=== PATIENT | male | born 1975 | race Caucasian/White ===

== ENCOUNTER 2020-08-12 18:43 | Inpatient (IN) | payer SELFPAY ==
[~2020-08-12] VITALS: Ht 167.6 cm; Wt 92.1 kg
[2020-08-12 19:39] VITALS: BP_SYST 231
[2020-08-12] MEDS ORDERED: hydrALAZINE HCL 20 MG/ML VIAL IVP ONE (20:30)
[2020-08-12 20:38] LABS: BASOPHILS # (AUTO) 0.2 K/uL (0.0-0.2); BASOPHILS % (AUTO) 1.9 % (0.0-2.0); EOSINOPHILS # (AUTO) 0.2 K/uL (0.0-0.4); EOSINOPHILS % (AUTO) 1.7 % (0.0-4.0); HEMATOCRIT 42.3 % (36-54); HEMOGLOBIN 14.2 g/dL (14.0-18.0); LYMPHOCYTES # (AUTO) 0.9 K/uL (1.0-5.5); LYMPHOCYTES % (AUTO) 8.8 % (20.5-51.5); MEAN CORPUSCULAR HEMOGLOBIN 29 pg (27-31); MEAN CORPUSCULAR HGB CONC 34 % (32-36); MEAN CORPUSCULAR VOLUME 87 fL (79.0-98.0); MONOCYTES # (AUTO) 0.9 K/uL (0.0-1.0); MONOCYTES % (AUTO) 8.3 % (1.7-9.3); NEUTROPHILS # (AUTO) 8.1 K/uL (1.8-7.7); NEUTROPHILS % (AUTO) 79.3 % (40.0-70.0); PLATELET COUNT (AUTO) 278 K/uL (130-430); RED BLOOD CELL COUNT(AUTO) 4.88 MIL/uL (4.2-6.2); RED CELL DISTRIBUTION WIDTH 15.3 % (9.0-15.0); WHITE BLOOD COUNT (AUTO) 10.2 K/uL (4.8-10.8)
[2020-08-12 20:50] LABS: CALCIUM 9.5 mg/dL (8.4-11.0); CREATININE 2.31 mg/dL (0.55-1.30); POTASSIUM 3.2 mmol/L (3.5-5.1)
[2020-08-12 20:58] LABS: ALBUMIN 3.4 g/dL (3.4-4.8); TOTAL BILIRUBIN 0.9 mg/dL (0.0-1.0)
[2020-08-12 21:11] LABS: BILIRUBIN,URINE NEGATIVE (NEGATIVE); CLARITY/URINE CLEAR (CLEAR); COLOR,URINE YELLOW (YELLOW); GLUCOSE,URINE NEGATIVE (NEGATIVE); KETONES,URINE NEGATIVE (NEGATIVE); LEUKOCYTE ESTERASE ,URINE NEGATIVE (NEGATIVE); NITRITE, URINE NEGATIVE (NEGATIVE); PH,URINE 6.5 (5.0-8.0); PROTEIN URINE 3+ (NEGATIVE)
[2020-08-12 21:16] LABS: BARBITURATE, URINE NEGATIVE (NEG <=200); BENZODIAZEPINE, URINE NEGATIVE (NEG <=150); CANNABINOID, URINE POSITIVE (NEG <=50); COCAINE, URINE NEGATIVE (NEG <=150); METHAMPHETAMINES SCREEN,URINE POSITIVE (NEG <=500); OPIATE, URINE NEGATIVE (NEG <=100); PHENCYCLIDINE SCREEN,URINE NEGATIVE (NEG <=25); UR TRICYCLIC ANTIDEPRESSANTS NEGATIVE (NEG <=300); URINE AMPHETAMINE POSITIVE (NEG <=500); URINE METHADONE NEGATIVE (NEG <=200); URINE OXYCODONE SCREEN NEGATIVE (NEG <=100); URINE PROPOXYPHENE SCREEN NEGATIVE (NEG <=300)
[2020-08-12 21:18] LABS: BLOOD, URINE TRACE (NEGATIVE)
[2020-08-12 21:20] LABS: BACTERIA,URINE None Seen /HPF (None Seen); WBC,URINE NONE SEEN /HPF (0-3)
[2020-08-12] MEDS ORDERED: niCARdipine 50 MG in D5W 230 ML IV ONE (21:30)
[2020-08-12] MEDS ORDERED: niCARdipine 2.5 MG/ML, 10 ML VIAL (CARDENE) IV ONE (21:39)
[2020-08-13] VITALS (27 sets, daily range): BP systolic 91–185
[2020-08-13] MEDS ORDERED: niCARdipine 50 MG in D5W 230 ML IV PRN (08:15)
[2020-08-13] MEDS ORDERED: niCARdipine 2.5 MG/ML, 10 ML VIAL (CARDENE) IV ONE (08:23)
[2020-08-13] MEDS ORDERED: FUROSEMIDE 40 MG TABLET PO ONE (10:00)
[2020-08-13] MEDS ORDERED: CARVEDILOL 12.5 MG TABLET (COREG) PO ONE (10:00)
[2020-08-13] MEDS ORDERED: SPIRONOLACTONE 25 MG TABLET (ALDACTONE) PO ONE (10:00)
[2020-08-13] MEDS ORDERED: lisinopriL 20 MG TABLET PO ONE (10:00)
[2020-08-13 10:18] LABS: BASOPHILS # (AUTO) 0.1 K/uL (0.0-0.2); BASOPHILS % (AUTO) 0.6 % (0.0-2.0); EOSINOPHILS # (AUTO) 0.1 K/uL (0.0-0.4); EOSINOPHILS % (AUTO) 1.1 % (0.0-4.0); HEMATOCRIT 48.8 % (36-54); HEMOGLOBIN 16.4 g/dL (14.0-18.0); LYMPHOCYTES # (AUTO) 0.7 K/uL (1.0-5.5); LYMPHOCYTES % (AUTO) 5.2 % (20.5-51.5); MEAN CORPUSCULAR HEMOGLOBIN 29 pg (27-31); MEAN CORPUSCULAR HGB CONC 34 % (32-36); MEAN CORPUSCULAR VOLUME 86 fL (79.0-98.0); MONOCYTES # (AUTO) 1.1 K/uL (0.0-1.0); MONOCYTES % (AUTO) 8.6 % (1.7-9.3); NEUTROPHILS % (AUTO) 84.5 % (40.0-70.0); PLATELET COUNT (AUTO) 306 K/uL (130-430)
[2020-08-13 10:42] LABS: ALBUMIN 3.9 g/dL (3.4-4.8); CALCIUM 9.7 mg/dL (8.4-11.0); CREATININE 1.76 mg/dL (0.55-1.30); TOTAL BILIRUBIN 1.5 mg/dL (0.0-1.0)
[2020-08-13] MEDS ORDERED: MORPHINE 2 MG/ML INJ. SYRINGE ONE (11:12)
[2020-08-13 11:15] LABS: POTASSIUM 2.9 mmol/L (3.5-5.1)
[2020-08-13] MEDS ORDERED: MORPHINE 2 MG/ML INJ. SYRINGE IVP PRN (11:15)
[2020-08-13] MEDS ORDERED: KETOROLAC TROMETHAMINE 15 MG VIAL ONE (11:25)
[2020-08-13] MEDS ORDERED: KCL 40 mEq in 100 mL (PREMIX) 0 ML IV ONE (11:26)
[2020-08-13] MEDS ORDERED: KETOROLAC TROMETHAMINE 15 MG VIAL IVP PRN (11:30)
[2020-08-13] MEDS ORDERED: POTASSIUM CHLORIDE 20 MEQ TAB.PRT.SR ONE (11:32)
[2020-08-13] MEDS ORDERED: ACETAMINOPHEN 325 MG TABLET ONE (11:32)
[2020-08-13] MEDS: LORazepam 2 MG/ML VIAL IM PRN (11:35)
[2020-08-13] MEDS: ACETAMINOPHEN 325 MG TABLET PO PRN ×2 (11:35→21:10)
[2020-08-13] MEDS ORDERED: POTASSIUM CHLORIDE 20 MEQ TAB.PRT.SR PO ONE ×3 (11:45→20:00)
[2020-08-13] MEDS ORDERED: POTASSIUM CHLORIDE 40 MEQ in NS 250 ML IV ONE (12:00)
[2020-08-13 16:45] LABS: POTASSIUM 2.9 mmol/L (3.5-5.1)
[2020-08-13] MEDS: SPIRONOLACTONE 25 MG TABLET (ALDACTONE) PO SCH (21:05)
[2020-08-13] MEDS: CARVEDILOL 12.5 MG TABLET (COREG) PO SCH (21:14)
[2020-08-13] MEDS ORDERED: CARVEDILOL 12.5 MG TABLET (COREG) ONE (21:15)
[2020-08-13 23:40] LABS: CALCIUM 8.6 mg/dL (8.4-11.0); CREATININE 1.94 mg/dL (0.55-1.30); POTASSIUM 3.7 mmol/L (3.5-5.1)
[2020-08-14] VITALS: BP_SYST 143
[2020-08-14 08:02] LABS: BASOPHILS # (AUTO) 0.1 K/uL (0.0-0.2); BASOPHILS % (AUTO) 0.8 % (0.0-2.0); EOSINOPHILS # (AUTO) 0.3 K/uL (0.0-0.4); EOSINOPHILS % (AUTO) 3.6 % (0.0-4.0); HEMATOCRIT 48.8 % (36-54); HEMOGLOBIN 16.3 g/dL (14.0-18.0); LYMPHOCYTES # (AUTO) 0.9 K/uL (1.0-5.5); LYMPHOCYTES % (AUTO) 10.2 % (20.5-51.5); MEAN CORPUSCULAR HEMOGLOBIN 29 pg (27-31); MEAN CORPUSCULAR HGB CONC 34 % (32-36); MEAN CORPUSCULAR VOLUME 87 fL (79.0-98.0); MONOCYTES # (AUTO) 0.9 K/uL (0.0-1.0); MONOCYTES % (AUTO) 10.2 % (1.7-9.3); NEUTROPHILS # (AUTO) 6.9 K/uL (1.8-7.7); NEUTROPHILS % (AUTO) 75.2 % (40.0-70.0); PLATELET COUNT (AUTO) 311 K/uL (130-430); RED BLOOD CELL COUNT(AUTO) 5.63 MIL/uL (4.2-6.2); RED CELL DISTRIBUTION WIDTH 15.4 % (9.0-15.0); WHITE BLOOD COUNT (AUTO) 9.2 K/uL (4.8-10.8)
[2020-08-14] MEDS ORDERED: FUROSEMIDE 40 MG TABLET PO SCH (09:00)
[2020-08-14 09:02] LABS: POTASSIUM 3.7 mmol/L (3.5-5.1)
[2020-08-14] MEDS ORDERED: CARVEDILOL 12.5 MG TABLET (COREG) ONE ×2 (10:10→20:13)
[2020-08-14] MEDS: SPIRONOLACTONE 25 MG TABLET (ALDACTONE) PO SCH ×2 (10:18→20:28)
[2020-08-14 10:19] LABS: CALCIUM 9.4 mg/dL (8.4-11.0); CREATININE 1.81 mg/dL (0.55-1.30); TOTAL BILIRUBIN 0.8 mg/dL (0.0-1.0)
[2020-08-14] MEDS: CARVEDILOL 12.5 MG TABLET (COREG) PO SCH ×2 (10:19→20:27)
[2020-08-14] MEDS: lisinopriL 20 MG TABLET PO SCH (10:19)
[2020-08-14 10:20] LABS: ALBUMIN 2.9 g/dL (3.4-4.8); THYROID STIMULATING HORMONE 0.85 uIu/mL (0.36-3.74)
[2020-08-14] MEDS: LORazepam 2 MG/ML VIAL IM PRN (14:20)
[2020-08-14 16:00] VITALS: BP_SYST 148
[2020-08-14] MEDS ORDERED: POLYETHYLENE GLYCOL 3350, 17 GM/ POWD.PACK PO ONE (16:00)
[2020-08-14 19:00] VITALS: BP_SYST 147
[2020-08-14 20:00] VITALS: BP_SYST 147
[2020-08-15] VITALS: BP_SYST 140
[2020-08-15 06:35] LABS: BASOPHILS # (AUTO) 0.1 K/uL (0.0-0.2); BASOPHILS % (AUTO) 0.7 % (0.0-2.0); EOSINOPHILS # (AUTO) 0.3 K/uL (0.0-0.4); EOSINOPHILS % (AUTO) 2.6 % (0.0-4.0); HEMATOCRIT 46.8 % (36-54); HEMOGLOBIN 15.8 g/dL (14.0-18.0); LYMPHOCYTES # (AUTO) 0.9 K/uL (1.0-5.5); LYMPHOCYTES % (AUTO) 8.8 % (20.5-51.5); MEAN CORPUSCULAR HEMOGLOBIN 29 pg (27-31); MEAN CORPUSCULAR HGB CONC 34 % (32-36); MEAN CORPUSCULAR VOLUME 87 fL (79.0-98.0); MONOCYTES # (AUTO) 1.5 K/uL (0.0-1.0); MONOCYTES % (AUTO) 14.1 % (1.7-9.3); NEUTROPHILS # (AUTO) 7.7 K/uL (1.8-7.7); NEUTROPHILS % (AUTO) 73.8 % (40.0-70.0); PLATELET COUNT (AUTO) 324 K/uL (130-430); RED BLOOD CELL COUNT(AUTO) 5.41 MIL/uL (4.2-6.2); RED CELL DISTRIBUTION WIDTH 15.7 % (9.0-15.0); WHITE BLOOD COUNT (AUTO) 10.5 K/uL (4.8-10.8)
[2020-08-15 06:59] LABS: CREATININE 1.98 mg/dL (0.55-1.30); PHOSPHORUS 3.8 mg/dL (2.7-4.5); POTASSIUM 4.5 mmol/L (3.5-5.1)
[2020-08-15 07:55] VITALS: BP_SYST 177
[2020-08-15] MEDS: POLYETHYLENE GLYCOL 3350, 17 GM/ POWD.PACK PO SCH (09:00)
[2020-08-15] MEDS ORDERED: CARVEDILOL 12.5 MG TABLET (COREG) ONE ×2 (09:45→21:37)
[2020-08-15] MEDS ORDERED: SPIRONOLACTONE 50 MG TABLET (ALDACTONE) ONE ×2 (09:45→09:55)
[2020-08-15] MEDS: CARVEDILOL 12.5 MG TABLET (COREG) PO SCH ×2 (09:52→22:10)
[2020-08-15] MEDS: lisinopriL 20 MG TABLET PO SCH (09:53)
[2020-08-15] MEDS: SPIRONOLACTONE 25 MG TABLET (ALDACTONE) PO SCH (10:00)
[2020-08-15] MEDS ORDERED: hydrALAZINE HCL 25 MG TABLET PO ONE (10:15)
[2020-08-15 12:00] VITALS: BP_SYST 135
[2020-08-15] MEDS ORDERED: OXYBUTYNIN CHLORIDE 5 MG TABLET PO ONE (16:00)
[2020-08-15 16:55] VITALS: BP_SYST 155
[2020-08-15 20:00] VITALS: BP_SYST 151
[2020-08-15] MEDS: OXYBUTYNIN CHLORIDE 5 MG TABLET PO SCH (20:21)
[2020-08-15] MEDS: hydrALAZINE HCL 25 MG TABLET PO SCH (20:26)
[2020-08-16 00:01] VITALS: BP_SYST 145
[2020-08-16 07:40] VITALS: BP_SYST 165
[2020-08-16] MEDS: lisinopriL 20 MG TABLET PO SCH (08:42)
[2020-08-16] MEDS: hydrALAZINE HCL 25 MG TABLET PO SCH ×3 (08:43→20:18)
[2020-08-16] MEDS: OXYBUTYNIN CHLORIDE 5 MG TABLET PO SCH ×2 (08:43→20:18)
[2020-08-16] MEDS: POLYETHYLENE GLYCOL 3350, 17 GM/ POWD.PACK PO SCH (08:44)
[2020-08-16] MEDS ORDERED: CARVEDILOL 12.5 MG TABLET (COREG) ONE ×2 (08:47→20:13)
[2020-08-16] MEDS: CARVEDILOL 12.5 MG TABLET (COREG) PO SCH ×2 (08:48→20:20)
[2020-08-16 12:00] VITALS: BP_SYST 132
[2020-08-16] MEDS: NACL 0.9% 1,000 ML IV SCH (15:08)
[2020-08-16 16:35] VITALS: BP_SYST 147
[2020-08-16 16:46] LABS: CREATININE,URINE 41.4 MG/DL (30-125); TPROTEIN U,24HR 598.6 mg/24HR (0-130)
[2020-08-16 16:48] LABS: CREATININE 1.98 mg/dL (0.55-1.30); CREATININE CLEARANCE,URINE 25.7 ml/min (80-120)
[2020-08-16 20:00] VITALS: BP_SYST 153
[2020-08-17] MEDS: hydrALAZINE HCL 25 MG TABLET PO SCH ×3 (06:16→21:34)
[2020-08-17 08:13] LABS: CALCIUM 8.9 mg/dL (8.4-11.0); CREATININE 1.66 mg/dL (0.55-1.30); POTASSIUM 4.8 mmol/L (3.5-5.1)
[2020-08-17 09:21] VITALS: BP_SYST 153
[2020-08-17] MEDS: OXYBUTYNIN CHLORIDE 5 MG TABLET PO SCH ×2 (09:21→21:31)
[2020-08-17] MEDS ORDERED: amLODIPine BESYLATE 10 MG TABLET PO ONE (10:15)
[2020-08-17] MEDS: CARVEDILOL 12.5 MG TABLET (COREG) PO SCH (10:51)
[2020-08-17] MEDS: POLYETHYLENE GLYCOL 3350, 17 GM/ POWD.PACK PO SCH (10:51)
[2020-08-17 12:41] VITALS: BP_SYST 171
[2020-08-17 12:55] LABS: URINE SODIUM, RANDOM 22 mmol/L (40-220)
[2020-08-17] MEDS: NACL 0.9% 1,000 ML IV SCH (13:59)
[2020-08-17 16:55] VITALS: BP_SYST 152
[2020-08-17 19:00] VITALS: BP_SYST 155
[2020-08-17 20:00] VITALS: BP_SYST 155
[2020-08-17] MEDS: CARVEDILOL 25 MG TABLET (COREG) PO SCH (21:31)
[2020-08-18] VITALS: BP_SYST 145
[2020-08-18] MEDS: ACETAMINOPHEN 325 MG TABLET PO PRN (01:45)
[2020-08-18] MEDS: hydrALAZINE HCL 25 MG TABLET PO SCH ×3 (05:48→20:36)
[2020-08-18 06:00] VITALS: BP_SYST 165
[2020-08-18 08:17] LABS: CREATININE 1.61 mg/dL (0.55-1.30); POTASSIUM 4.5 mmol/L (3.5-5.1)
[2020-08-18 08:30] VITALS: BP_SYST 181
[2020-08-18] MEDS ORDERED: POLYETHYLENE GLYCOL 3350, 17 GM/ POWD.PACK ONE (09:04)
[2020-08-18] MEDS: amLODIPine BESYLATE 10 MG TABLET PO SCH (09:06)
[2020-08-18] MEDS: POLYETHYLENE GLYCOL 3350, 17 GM/ POWD.PACK PO SCH (09:07)
[2020-08-18] MEDS: OXYBUTYNIN CHLORIDE 5 MG TABLET PO SCH ×2 (09:07→20:37)
[2020-08-18] MEDS: CARVEDILOL 25 MG TABLET (COREG) PO SCH ×2 (09:07→20:37)
[2020-08-18 11:36] VITALS: BP_SYST 156
[2020-08-18] MEDS: NACL 0.9% 1,000 ML IV SCH (14:45)
[2020-08-18 16:00] VITALS: BP_SYST 165
[2020-08-18] MEDS: ALPRAZolam 0.25 MG TABLET PO PRN (17:41)
[2020-08-18 20:00] VITALS: BP_SYST 171
[2020-08-19] VITALS: BP_SYST 152
[2020-08-19] MEDS: ACETAMINOPHEN 325 MG TABLET PO PRN (01:55)
[2020-08-19 07:45] VITALS: BP_SYST 165
[2020-08-19] MEDS ORDERED: MINOXIDIL 10 MG TABLET (LONITEN) PO ONE (09:30)
[2020-08-19] MEDS ORDERED: hydrALAZINE HCL 25 MG TABLET ONE (09:36)
[2020-08-19] MEDS: hydrALAZINE HCL 25 MG TABLET PO SCH ×2 (09:40→21:14)
[2020-08-19] MEDS: amLODIPine BESYLATE 10 MG TABLET PO SCH (09:41)
[2020-08-19] MEDS: CARVEDILOL 25 MG TABLET (COREG) PO SCH ×2 (09:41→21:09)
[2020-08-19] MEDS: OXYBUTYNIN CHLORIDE 5 MG TABLET PO SCH ×2 (09:41→21:08)
[2020-08-19] MEDS ORDERED: POLYETHYLENE GLYCOL 3350, 17 GM/ POWD.PACK ONE (09:48)
[2020-08-19] MEDS: POLYETHYLENE GLYCOL 3350, 17 GM/ POWD.PACK PO SCH (09:55)
[2020-08-19 11:29] VITALS: BP_SYST 147
[2020-08-19] MEDS: ALPRAZolam 0.25 MG TABLET PO PRN (14:20)
[2020-08-19] MEDS: NACL 0.9% 1,000 ML IV SCH (14:45)
[2020-08-19 16:00] VITALS: BP_SYST 147
[2020-08-19 21:00] VITALS: BP_SYST 157
[2020-08-20 00:18] VITALS: BP_SYST 143
[2020-08-20] MEDS: ACETAMINOPHEN 325 MG TABLET PO PRN (06:23)
[2020-08-20 06:50] LABS: BASOPHILS # (AUTO) 0.1 K/uL (0.0-0.2); BASOPHILS % (AUTO) 0.8 % (0.0-2.0); EOSINOPHILS # (AUTO) 0.2 K/uL (0.0-0.4); EOSINOPHILS % (AUTO) 2.8 % (0.0-4.0); HEMATOCRIT 44.1 % (36-54); HEMOGLOBIN 14.8 g/dL (14.0-18.0); LYMPHOCYTES % (AUTO) 14.7 % (20.5-51.5); MEAN CORPUSCULAR HEMOGLOBIN 29 pg (27-31); MEAN CORPUSCULAR HGB CONC 34 % (32-36); MEAN CORPUSCULAR VOLUME 87 fL (79.0-98.0); MONOCYTES # (AUTO) 0.7 K/uL (0.0-1.0); MONOCYTES % (AUTO) 10.1 % (1.7-9.3); NEUTROPHILS # (AUTO) 4.9 K/uL (1.8-7.7); NEUTROPHILS % (AUTO) 71.6 % (40.0-70.0); PLATELET COUNT (AUTO) 316 K/uL (130-430); RED BLOOD CELL COUNT(AUTO) 5.09 MIL/uL (4.2-6.2); WHITE BLOOD COUNT (AUTO) 6.9 K/uL (4.8-10.8)
[2020-08-20 07:08] LABS: CALCIUM 8.8 mg/dL (8.4-11.0); CREATININE 1.59 mg/dL (0.55-1.30); POTASSIUM 4.1 mmol/L (3.5-5.1)
[2020-08-20 08:00] VITALS: BP_SYST 146
[2020-08-20] MEDS: POLYETHYLENE GLYCOL 3350, 17 GM/ POWD.PACK PO SCH (09:00)
[2020-08-20] MEDS: hydrALAZINE HCL 25 MG TABLET PO SCH ×2 (09:41→20:21)
[2020-08-20] MEDS: OXYBUTYNIN CHLORIDE 5 MG TABLET PO SCH ×2 (09:41→20:20)
[2020-08-20] MEDS: MINOXIDIL 10 MG TABLET (LONITEN) PO SCH (09:42)
[2020-08-20] MEDS: amLODIPine BESYLATE 10 MG TABLET PO SCH (09:42)
[2020-08-20] MEDS: CARVEDILOL 25 MG TABLET (COREG) PO SCH ×2 (09:43→20:19)
[2020-08-20 11:43] LABS: CREATININE, URINE 49.7 mg/dL; MICROALBUMIN URINE RANDOM 138.6 ug/ml (NOT ESTABLISHED); MICROALBUMIN/CREAT RATIO, UR 279 High MG/G CRE (0.0-30.0)
[2020-08-20 12:00] VITALS: BP_SYST 136
[2020-08-20 16:39] VITALS: BP_SYST 166
[2020-08-20 20:00] VITALS: BP_SYST 162
[2020-08-20] MEDS: NACL 0.9% 1,000 ML IV SCH (23:45)
[2020-08-21] VITALS: BP_SYST 128; BP_SYST 144
[2020-08-21] MEDS: ACETAMINOPHEN 325 MG TABLET PO PRN (05:05)
[2020-08-21 07:00] LABS: BASOPHILS # (AUTO) 0.1 K/uL (0.0-0.2); BASOPHILS % (AUTO) 0.8 % (0.0-2.0); EOSINOPHILS # (AUTO) 0.2 K/uL (0.0-0.4); HEMATOCRIT 41.8 % (36-54); LYMPHOCYTES # (AUTO) 1.1 K/uL (1.0-5.5); LYMPHOCYTES % (AUTO) 16.5 % (20.5-51.5); MEAN CORPUSCULAR HEMOGLOBIN 29 pg (27-31); MEAN CORPUSCULAR HGB CONC 33 % (32-36); MEAN CORPUSCULAR VOLUME 87 fL (79.0-98.0); MONOCYTES # (AUTO) 0.7 K/uL (0.0-1.0); MONOCYTES % (AUTO) 11.4 % (1.7-9.3); NEUTROPHILS # (AUTO) 4.5 K/uL (1.8-7.7); NEUTROPHILS % (AUTO) 68.3 % (40.0-70.0); PLATELET COUNT (AUTO) 302 K/uL (130-430); RED BLOOD CELL COUNT(AUTO) 4.83 MIL/uL (4.2-6.2); RED CELL DISTRIBUTION WIDTH 15.2 % (9.0-15.0); WHITE BLOOD COUNT (AUTO) 6.6 K/uL (4.8-10.8)
[2020-08-21 07:25] LABS: CALCIUM 8.8 mg/dL (8.4-11.0); CREATININE 1.72 mg/dL (0.55-1.30); POTASSIUM 3.9 mmol/L (3.5-5.1)
[2020-08-21 08:00] VITALS: BP_SYST 177
[2020-08-21] MEDS: MINOXIDIL 10 MG TABLET (LONITEN) PO SCH ×2 (08:21→22:39)
[2020-08-21] MEDS: amLODIPine BESYLATE 10 MG TABLET PO SCH (08:21)
[2020-08-21] MEDS: OXYBUTYNIN CHLORIDE 5 MG TABLET PO SCH ×2 (08:22→21:46)
[2020-08-21] MEDS: CARVEDILOL 25 MG TABLET (COREG) PO SCH ×2 (08:22→21:46)
[2020-08-21] MEDS: hydrALAZINE HCL 25 MG TABLET PO SCH ×2 (08:23→21:45)
[2020-08-21] MEDS: POLYETHYLENE GLYCOL 3350, 17 GM/ POWD.PACK PO SCH (08:25)
[2020-08-21 12:00] VITALS: BP_SYST 119
[2020-08-21] MEDS ORDERED: MINOXIDIL 10 MG TABLET (LONITEN) PO ONE (14:15)
[2020-08-21] MEDS: NACL 0.9% 1,000 ML IV SCH (14:23)
[2020-08-21 20:00] VITALS: BP_SYST 147
[2020-08-22] VITALS: BP_SYST 128
[2020-08-22 08:00] VITALS: BP_SYST 150
[2020-08-22] MEDS: hydrALAZINE HCL 25 MG TABLET PO SCH (08:30)
[2020-08-22] MEDS: OXYBUTYNIN CHLORIDE 5 MG TABLET PO SCH (08:30)
[2020-08-22] MEDS: MINOXIDIL 10 MG TABLET (LONITEN) PO SCH (08:31)
[2020-08-22] MEDS: CARVEDILOL 25 MG TABLET (COREG) PO SCH (08:31)
[2020-08-22] MEDS: amLODIPine BESYLATE 10 MG TABLET PO SCH (08:32)
[2020-08-22] MEDS: POLYETHYLENE GLYCOL 3350, 17 GM/ POWD.PACK PO SCH (08:32)
[2020-08-22 12:35] VITALS: BP_SYST 116
[2020-08-22] MEDS: NACL 0.9% 1,000 ML IV SCH (13:15)
[2020-08-22 14:49] VITALS: BP_SYST 116
[2020-08-22] MEDS ORDERED: NOR10 PO (16:54)
[2020-08-22] MEDS ORDERED: HYDR100T25 PO (16:55)
[2020-08-22] MEDS ORDERED: CARV25TA55 PO (16:55)
[2020-08-22] MEDS ORDERED: POLY17PO4 PO (16:56)
[2020-08-22] MEDS ORDERED: LON10 PO (16:56)
[2020-08-22] MEDS ORDERED: OXYB5TAB16 PO (16:56)
== END 2020-08-22 17:25 | disposition home or self-care (01) | DRG 305 ==
LOC: SED 18:43 → SIC 22:01 → STU 08-14 01:56 → SMU 08-19 09:30
PROVIDERS: ADMIT Internal Medicine; ATTEND Internal Medicine
DX: I16.1 Hypertensive emergency (principal); E44.0 Moderate protein-calorie malnutrition; I42.0 Dilated cardiomyopathy; I50.30 Unspecified diastolic (congestive) heart failure; F15.90 Other stimulant use, unspecified, uncomplicated; I13.0 Hypertensive heart and chronic kidney disease with heart failure and stage 1 through stage 4 chronic kidney disease, or unspecified chronic kidney disease; K59.00 Constipation, unspecified; N28.1 Cyst of kidney, acquired; N39.41 Urge incontinence; N18.30 Chronic kidney disease, stage 3 unspecified; E87.6 Hypokalemia; F17.210 Nicotine dependence, cigarettes, uncomplicated; Z20.822 Contact with and (suspected) exposure to COVID-19; Z79.899 Other long term (current) drug therapy; Z91.19 Patient's noncompliance with other medical treatment and regimen; Z68.32 Body mass index [BMI] 32.0-32.9, adult; Z91.14 Patient's other noncompliance with medication regimen
CPT/HCPCS: 36415; 71045; 76700-TC; 78707; 80048; 80053; 80061; 80307; 81000-TC; 82043; 82533; 82570; 82570-TC; 82575-TC; 83735-TC; 83880; 84100-TC; 84132-TC; 84156; 84302-TC; 84443-TC; 84484; 85025; 85379; 87081; 93005; 93306; 96365; 96366; 96375; 99291; A9562; G0378; J0360; J1885; J2060; J2270; J3480; J7050; J7060

== ENCOUNTER 2021-02-21 14:14 | Emergency (ER) | payer MEDICAID, SELFPAY ==
[~2021-02-21] VITALS: Ht 167.6 cm; Wt 88.5 kg
[~2021-02-21 14:14] MED LIST: CARV25TA55 PO; HYDR100T25 PO; LON10 PO; NOR10 PO; OXYB5TAB16 PO; POLY17PO4 PO
[2021-02-21 14:19] VITALS: BP_SYST 156
[2021-02-21 16:25] LABS: BASOPHILS # (AUTO) 0.1 K/uL (0.0-0.2); BASOPHILS % (AUTO) 0.7 % (0.0-2.0); EOSINOPHILS # (AUTO) 0.2 K/uL (0.0-0.4); EOSINOPHILS % (AUTO) 1.9 % (0.0-4.0); HEMOGLOBIN 12.8 g/dL (14.0-18.0); LYMPHOCYTES # (AUTO) 0.6 K/uL (1.0-5.5); LYMPHOCYTES % (AUTO) 7.1 % (20.5-51.5); MEAN CORPUSCULAR HEMOGLOBIN 29 pg (27-31); MEAN CORPUSCULAR HGB CONC 33 % (32-36); MEAN CORPUSCULAR VOLUME 89 fL (79.0-98.0); MONOCYTES % (AUTO) 12.5 % (1.7-9.3); NEUTROPHILS # (AUTO) 6.4 K/uL (1.8-7.7); NEUTROPHILS % (AUTO) 77.8 % (40.0-70.0); PLATELET COUNT (AUTO) 371 K/uL (130-430); RED BLOOD CELL COUNT(AUTO) 4.36 MIL/uL (4.2-6.2); RED CELL DISTRIBUTION WIDTH 16.3 % (9.0-15.0); WHITE BLOOD COUNT (AUTO) 8.2 K/uL (4.8-10.8)
[2021-02-21 16:31] LABS: CALCIUM 9.1 mg/dL (8.4-11.0); CREATININE 1.67 mg/dL (0.55-1.30); POTASSIUM 3.8 mmol/L (3.5-5.1)
[2021-02-21 16:38] LABS: TOTAL BILIRUBIN 0.5 mg/dL (0.0-1.0)
[2021-02-21 16:40] LABS: INR 1.2 (0.80-1.20)
[2021-02-21] MEDS: FUROSEMIDE 40 MG/4 ML VIAL IVP ONE (17:23)
[2021-02-21] MEDS ORDERED: FURO-150 PO (19:26)
[2021-02-21 19:46] VITALS: BP_SYST 157
== END 2021-02-21 19:46 | disposition home or self-care (01) ==
LOC: SED 14:14
DX: R60.0 Localized edema (principal); N18.9 Chronic kidney disease, unspecified; I11.0 Hypertensive heart disease with heart failure; I50.9 Heart failure, unspecified; Z88.8 Allergy status to other drugs, medicaments and biological substances; Z88.5 Allergy status to narcotic agent; Z79.899 Other long term (current) drug therapy; Z20.822 Contact with and (suspected) exposure to COVID-19
CPT/HCPCS: 36415; 71045; 80053; 82550; 83880; 84484; 85025; 85610; 85730; 87426; 93005; 96374; 99285; J1940

== ENCOUNTER 2021-03-18 18:20 | Emergency (ER) | payer MEDICAID, SELFPAY ==
[~2021-03-18] VITALS: Ht 167.6 cm; Wt 93.0 kg
[~2021-03-18 18:20] MED LIST changes: +FURO-150 PO; -LON10 PO; -POLY17PO4 PO
--- NOTE | 2021-03-18 18:40 | NUR ---
Patient to triage evaluation. Side rails up.
--- NOTE | 2021-03-18 18:42 | NUR ---
ER at bedside examining patient.
--- NOTE | 2021-03-18 18:50 | NUR ---
Pt presents to ED for med refill
[2021-03-18] MEDS ORDERED: NOR10 PO (18:54)
[2021-03-18] MEDS ORDERED: FURO-150 PO (18:54)
[2021-03-18] MEDS ORDERED: HYDR100T25 PO (18:54)
[2021-03-18] MEDS ORDERED: POTA20TA83 PO (18:54)
[2021-03-18] MEDS ORDERED: CARV25TA55 PO (18:54)
[2021-03-18] MEDS ORDERED: DITXL5 PO (18:54)
[2021-03-18 18:55] VITALS: BP_SYST 155
[2021-03-18 19:20] VITALS: BP_SYST 155
--- NOTE | 2021-03-18 19:20 | NUR ---
Patient given written and verbal discharge instructions and verbalizes understanding. ER MD discussed with patient the results and treatment provided. Patient in stable condition. ID arm band removed. Rx of norvasc,ditropan,coreg,k-dur,lasix,oxybutinin given. Patient educated on pain management and to follow up with PMD. Pain Scale 0. Opportunity for questions provided and answered. Medication side effect fact sheet provided.
== END 2021-03-18 18:50 | disposition home or self-care (01) ==
LOC: SED 18:20
DX: R60.0 Localized edema (principal); I11.0 Hypertensive heart disease with heart failure; I50.9 Heart failure, unspecified; Z76.0 Encounter for issue of repeat prescription; Z88.6 Allergy status to analgesic agent; Z88.5 Allergy status to narcotic agent; Z79.899 Other long term (current) drug therapy
CPT/HCPCS: 99281